=== PATIENT | female | born 1940 | race Caucasian/White ===

== ENCOUNTER 2016-11-11 22:36 | Inpatient (IN) | payer OTHER ==
--- NOTE | 2016-11-11 22:48 | EDPHY ---
H & P Time Seen by Provider: 11/11/16 22:44 HPI/ROS: Chief Complaint: Left hip pain status post fall HPI: 76-year-old alf resident had a mechanical fall from her wheelchair about 6 o'clock this evening. Patient is complaining of left hip pain and was noted she had a deformity. X-rays obtained in the alf which showed a left intertrochanteric hip fracture. Patient has been unable to weight bear since then. Did not hit her head. No loss of consciousness. Has otherwise been in her normal state of health. No cough. No chest pain. No shortness of breath. ROS: 10 point Review of Systems is negative except as noted in the HPI. 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 She has got tenderness over the left hip. She has 2+ DP and PT pulses distally. Capillary refills less than 2 seconds. Sensations intact. Skin: no rash Neuro: CN II-XII intact, Sensation grossly intact, Strength 5/5 in bilateral upper and lower extremities Constitutional: Initial Vital Signs Heart Rate 130 H 11/11/16 22:40 Respiratory Rate 20 11/11/16 22:40 Blood Pressure 124/74 H 11/11/16 22:40 O2 Sat (%) 93 11/11/16 22:40 O2 Delivery Mode Nasal Cannula O2 (L/minute) 3 Allergies/Adverse Reactions: zolpidem tartrate [From Ambien] Allergy (Intermediate, Verified 04/15/09 14:06) DISORIENTATION,HALLUCINATION Home Medications: Medication Instructions Recorded Aspirin 81mg (*) 11/11/16 CALCI-CHEW 11/11/16 Mucinex 600 MG (*) 11/11/16 Thera-M 11/11/16 Tylenol 11/11/16 Vitami D3 11/11/16 Medical Decision Making - Diagnostics EKG Interpretation: ECG time 11:12 p.m., sinus rhythm with a rate of 79, left anterior fascicular block, frequent unifocal PVCs, no acute ST or T-wave changes. Imaging Results: Imaging Impressions Chest X-Ray 11/11/16 22:45 Impression: 1. Mild prominent interstitial markings to the upper lobes. This could be related to underlying interstitial lung disease versus cephalization of pulmonary flow with mild fluid overload. 2. Hyperexpanded lungs compatible with underlying COPD. Hip X-Ray 11/11/16 22:45 Impression: 1. Intertrochanteric left hip fracture with fracture fragment of the left lesser trochanter noted. Imaging: I viewed and interpreted images myself Procedures: Procedure note: Femoral nerve block under ultrasound guidance Time: 11:30 p.m., 11/11/16 Indication: Left femoral intertrochanteric fracture. The patient and her sister were verbally consented to the procedure. Patient was prepped chlorhexidine prep sterile technique was observed including sterile drapes, sterile ultrasound probe cover, sterile gloves. Bedside ultrasound was used by me to identify the femoral nerve, femoral artery and femoral vein in the left hand side. With these are identified an 18 gauge needle was inserted in the vicinity of the femoral nerve. 0.5% bupivacaine was infiltrated around the nerve, frequently drying back to ensure no intravascular placement. The lidocaine was visualized on ultrasound to surround the femoral nerve and surrounding structures. A total of 18 mL of bupivacaine was infiltrated in the area. The needle was removed and a sterile dressing was placed. The patient tolerated the procedure well. There were no complications. The procedure was performed by me. ED Course/Re-evaluation: A left intertrochanteric fracture was noted on x-ray. I have discussed with Dr. Sauceda, orthopedic surgery. He he agreed with plan for placement of a femoral nerve block. See procedure note. I have discussed with Dr. Isaías Guerrero , hospitalist. He will admit to his service for further evaluation. A Deras catheter was placed. Chest x-ray, laboratory evaluation, and ECG were obtained for preoperative purposes. - Data Points Laboratory Results: Laboratory Results 11/11/16 22:48 11/11/16 22:48 11/11/16 11/11/16 22:48 22:48 WBC 14.12 10^3/uL H 10^3/uL (3.80-9.50) RBC 3.89 10^6/uL L 10^6/uL (4.18-5.33) Hgb 11.7 g/dL L g/dL (12.6-16.3) Hct 36.2 % L % (38.0-47.0) MCV 93.1 fL fL (81.5-99.8) MCH 30.1 pg pg (27.9-34.1) MCHC 32.3 g/dL L g/dL (32.4-36.7) RDW 14.0 % % (11.5-15.2) Plt Count 341 10^3/uL 10^3/uL (150-400) MPV 9.9 fL fL (8.7-11.7) Neut % (Auto) 85.4 % H % (39.3-74.2) Lymph % (Auto) 7.0 % L % (15.0-45.0) [place] % (Auto) 6.4 % % (4.5-13.0) Eos % (Auto) 0.4 % L % (0.6-7.6) Baso % (Auto) 0.4 % % (0.3-1.7) Nucleat RBC Rel Count 0.0 % % (0.0-0.2) Absolute Neuts (auto) 12.06 10^3/uL H 10^3/uL (1.70-6.50) Absolute Lymphs (auto) 0.99 10^3/uL L 10^3/uL (1.00-3.00) Absolute Monos (auto) 0.90 10^3/uL H 10^3/uL (0.30-0.80) Absolute Eos (auto) 0.05 10^3/uL 10^3/uL (0.03-0.40) Absolute Basos (auto) 0.06 10^3/uL 10^3/uL (0.02-0.10) Absolute Nucleated RBC 0.00 10^3/uL 10^3/uL (0-0.01) Immature Gran % 0.4 % % (0.0-1.1) Immature Gran # 0.06 10^3/uL 10^3/uL (0.00-0.10) Sodium 139 mEq/L mEq/L (134-144) Potassium 4.6 mEq/L mEq/L (3.5-5.2) Chloride 102 mEq/L mEq/L (97-110) Carbon Dioxide 27 mEq/l mEq/l (22-31) Anion Gap 10 mEq/L mEq/L (8-16) BUN 21 mg/dL mg/dL (7-23) Creatinine 0.9 mg/dL mg/dL (0.6-1.0) Estimated GFR > 60 Glucose 118 mg/dL H mg/dL (70-100) Calcium 9.4 mg/dL mg/dL (8.5-10.4) Departure - Departure Disposition: [facility] Inpatient Acute Clinical Impression: Closed left hip fracture Condition: Fair Referrals: Patient,NotPresent [Unknown] - As per Instructions
[2016-11-11 22:57] LABS: % IMMATURE GRANULYOCYTES 0.4 % (0.0-1.1); ABSOLUTE IMMATURE GRANULOCYTES 0.06 10^3/uL (0.00-0.10); ADD DIFF? NO; ADD MORPH? NO; ADD SCAN? NO; ATYPICAL LYMPHOCYTE FLAG 0 (0-99); FRAGMENT RBC FLAG 0 (0-99); HEMATOCRIT 36.2 % (38.0-47.0); HEMOGLOBIN 11.7 g/dL (12.6-16.3); LEFT SHIFT FLG 0 (0-99); LIPEMIA HEMOLYSIS FLAG 80 (0-99); MEAN CELL HEMOGLOBIN 30.1 pg (27.9-34.1); MEAN CELL HEMOGLOBIN CONCENTR. 32.3 g/dL (32.4-36.7); MEAN CELL VOLUME 93.1 fL (81.5-99.8); MEAN PLATELET VOLUME 9.9 fL (8.7-11.7); PLATELET CLUMPS FLAG 0 (0-99); PLATELET COUNT 341 10^3/uL (150-400); RED BLOOD CELL COUNT 3.89 10^6/uL (4.18-5.33)
[2016-11-11 23:07] LABS: ANION GAP 10 mEq/L (8-16); CALCIUM 9.4 mg/dL (8.5-10.4); CARBON DIOXIDE 27 mEq/l (22-31); CHLORIDE 102 mEq/L (97-110); CREATININE 0.9 mg/dL (0.6-1.0); GLOMERULAR FILTRATION RATE > 60; GLUCOSE 118 mg/dL (70-100); POTASSIUM 4.6 mEq/L (3.5-5.2); SODIUM 139 mEq/L (134-144)
--- NOTE | 2016-11-11 23:14 | CPEKG ---
Heart Rate: 79 RR Interval: 759 P-R Interval: 123 QRSD Interval: 82 QT Interval: 404 QTC Interval: 464 P Newman: 0 QRS Newman: -50 T Wave Newman: 69 EKG Severity - ABNORMAL ECG - EKG Impression: SINUS RHYTHM EKG Impression: VENTRICULAR TRIGEMINY EKG Impression: LEFT ANTERIOR FASCICULAR BLOCK Electronically Signed By: Denzel Adamson 12-Nov-2016 02:28:12
[2016-11-12] MEDS ORDERED: NS 500 ML IV ONE (00:01)
[2016-11-12 00:29] LABS: COLOR YELLOW; LEUKOCYTE ESTERASE,URINE 3+ (NEGATIVE); NITRITE,URINE NEGATIVE (NEGATIVE)
[2016-11-12 00:52] LABS: BACTERIA 4+ /hpf (NONE SEEN); MUCUS TRACE /lpf (NONE-1+); WBC,URINE 25-50 /hpf (0-3)
[2016-11-12] MEDS ORDERED: ONDANSETRON 4 MG/2 ML VIAL IVP PRN (01:58)
[2016-11-12] MEDS ORDERED: ONDANSETRON DISINTEGRATING 4 MG TAB PO PRN (01:58)
--- NOTE | 2016-11-12 02:24 | GHP ---
[f rep st] HISTORY AND PHYSICAL DATE OF ADMISSION: 11/11/2016 CHIEF COMPLAINT: Fall with hip fracture. HISTORY OF PRESENT ILLNESS: This is a 76-year-old female with a history of dementia and COPD living at a [place] [facility]. She apparently fell from her wheelchair and complained of left hip pain. X-rays confirmed a fracture. She is confused and not able to participate in the history. REVIEW OF SYSTEMS: Ten point review of systems unable to be obtained. PAST MEDICAL HISTORY: 1. Dementia. 2. COPD on 2 L of oxygen chronically. 3. Osteoporosis. MEDICATIONS: Reviewed. SOCIAL HISTORY: Previous smoker. FAMILY HISTORY: Both parents are . PHYSICAL EXAM: VITAL SIGNS: Afebrile. Blood pressure is 111/62, heart rate 66, oxygen saturation 96% on 2 L. GENERAL: Patient is thin and in no apparent distress. HEENT: Nonicteric sclerae. Ex traocular movements intact. Moist mucous membranes. NECK: Supple. No thyromegaly. LUNGS: Good effort. Decreased breath sounds bilaterally. No wheezing. CARDIOVASCULAR: Regular rate and rhyth m. No murmurs, rubs, or gallops. ABDOMEN: Positive bowel sounds. Soft, nontender, nondistended. No hepatosplenomegaly. EXTREMITIES: No clubbing, cyanosis, or edema. SKIN: Without rash. Warm, dry, intact. Neuro: Confused. Moves the upper extremities normally. LABORATORY DATA: White blood cell count elevated at 14, hemoglobin 11, platelets are normal. Chemi stries normal. UA does suggest urinary tract infection. EKG personally reviewed and interpreted shows trigeminy, left anterior fascicular block. Chest x-ray personally reviewed and interpreted shows possible interstitial lung disease and COPD. ASSESSMENT: A 76-year-old female with left hip fracture. PLAN: 1. Left hip fracture. Orthopedic surgery has been called. 2. Probable urinary tract infection. Patient does have an elevated white blood cell count and will be going to surgery and, thus, we will treat this with ceftriaxone. 3. Dementia. 4. Patient is a DNR. /[id number]/MODL
[2016-11-12] MEDS: D5W 1/2 NS W/ 20 KCl/L 1,000 ML IV SCH (02:35)
--- NOTE | 2016-11-12 15:14 | HOSPPROG ---
Hospitalist Progress Note Assessment/Plan: 76 y/o female new to my care 11/12 with #Left hip fracture #Dementia (end stage) #COPD/chronic resp failure #suspected uti dnr status Plan -I discussed the case with Dr. Carpio who will schedule pt for OR 11/13 -the patient is not a great surgical candidate given her advanced dementia and baseline mobility (WC bound) -will discuss palliative care with pts POA Subjective: confused. denies pain. unreliable historian Objective: Vital Signs Temp Pulse Resp BP Pulse Ox 37.2 C 90 15 130/72 H 90 L 11/12/16 12:15 11/12/16 12:15 11/12/16 12:15 11/12/16 12:15 11/12/16 12:15 11/11/16 11/12/16 11/13/16 05:59 05:59 05:59 Intake Total 1400 Output Total 100 Balance 1300 - Physical Exam Constitutional: chronically ill appearing Cardiovascular: regular rate and rhythym, no murmur, rub, or gallop Respiratory: no respiratory distress, no rales or rhonchi, clear to auscultation Gastrointestinal: normoactive bowel sounds, soft, non-tender abdomen, no palpable masses Skin: no rashes or abrasions, no fluctuance, no induration Neurologic: CN II-XII Intact, other (AAOx0), No facial droop ICD10 Worksheet Patient Problems: Problems Problem Status Onset Closed left hip fracture Acute
[2016-11-12] MEDS: ACETAMINOPHEN 325 MG TAB PO PRN (19:54)
--- NOTE | 2016-11-12 19:57 | PDGENHP ---
History and Physical History and Physical: 76 F from [facility]. Dementia and mostly in a wheelchair for balance and fall risk precautions. Clare is sister. Sofia is niece, General surgeon in [place]. Dr Joan Watkins ask for my consult for surgical intervention. Xrays with unstable intertroch L hip fx. Lesser is off. Hip fracture is appropriate for TFN. However, Jennyfer is a high risk candidate with limited ambulation Spoke with Clare for one hour over the phone Spoke/communicated films and surgical plan with dwayne Black. One hour. The family will contact the care team as to their wishes for Jennyfer. For now , she is on the surgical schedule Wednesday morning for a TFN. NPO after midnight Pain control Appreciate hospitalist involvement
--- NOTE | 2016-11-12 22:36 | SOAPPROG ---
DAPHNE Progress Note Assessment/Plan: Assessment: Plan: 11/12/16 22:32 Patient with inter-sub trochanteric facture of Left femur. Dementia with some mild co-morbidities. Not really mobile on a daily basis, wheelchair bound. Was set for nailing tomorrow, still waiting for final confirmation from family ( Dr Hollingsworth talked to them today). She is stable, NV intact, LLL is shortened and ER in its position as expected. Dr Sauceda Objective: Vital Signs Temp Pulse Resp BP Pulse Ox 36.4 C 106 H 15 104/96 H 94 11/12/16 20:00 11/12/16 20:00 11/12/16 20:00 11/12/16 20:00 11/12/16 20:00 11/11/16 11/12/16 11/13/16 05:59 05:59 05:59 Intake Total 1400 225 Output Total 100 Balance 1300 225 ICD10 Worksheet Patient Problems: Problems Problem Status Onset Closed left hip fracture Acute
[2016-11-13] MEDS: ACETAMINOPHEN 325 MG TAB PO PRN ×2 (01:33→05:58)
[2016-11-13] MEDS: D5W 1/2 NS W/ 20 KCl/L 1,000 ML IV SCH (04:09)
[2016-11-13] MEDS: ENOXAPARIN 40 MG/0.4 ML SYR SC SCH (06:59)
[2016-11-13] MEDS: ASPIRIN 81 MG CHEWABLE TAB PO SCH (06:59)
--- NOTE | 2016-11-13 12:34 | HOSPPROG ---
Hospitalist Progress Note Assessment/Plan: 76 y/o female new to my care 11/12 with #Left hip fracture #Dementia (end stage) #COPD/chronic resp failure #suspected uti dnr status Plan -I discussed the case with Dr. Carpio who will schedule pt for OR 11/13 -the patient is not a great surgical candidate given her advanced dementia and baseline mobility (WC bound) -I spoke with pts family yesterday (Clare) who is still debating surgery Subjective: pt is confused. denies pain. unreliable historian Objective: Vital Signs Temp Pulse Resp BP Pulse Ox 37.4 C 97 20 115/66 84 L 11/13/16 12:00 11/13/16 12:00 11/13/16 12:00 11/13/16 12:00 11/13/16 12:00 11/12/16 11/13/16 11/14/16 05:59 05:59 05:59 Intake Total 1400 1268 Output Total 100 Balance 1300 1268 - Physical Exam Constitutional: chronically ill appearing Cardiovascular: regular rate and rhythym, no murmur, rub, or gallop Respiratory: no respiratory distress, no rales or rhonchi, clear to auscultation Gastrointestinal: normoactive bowel sounds, soft, non-tender abdomen, no palpable masses, No guarding, No rebound ICD10 Worksheet Patient Problems: Problems Problem Status Onset Closed left hip fracture Acute
[2016-11-13] MEDS ORDERED: ROPIVACAINE HCL 20 MG/10 ML INJ EP ONE ×2 (13:10→16:41)
[2016-11-13] MEDS ORDERED: LR 1,000 ML IV ONE (15:13)
--- NOTE | 2016-11-13 15:37 | PDANEPAE ---
ANE History of Present Illness for L TFN ANE Past Medical History - Pulmonary History Hx COPD: Yes Hx Oxygen in Use at Home: Yes Hx Sleep Apnea: No Sleep Apnea Screening Result - Last Documented: Negative - Neurologic History Hx Dementia: Yes - Endocrine History Hx Diabetes: No ANE Review of Systems - Exercise capacity Exercise capacity: <4 METS, limited by disability ANE Patient History - Allergies Allergies/Adverse Reactions: zolpidem tartrate [From Ambien] Allergy (Intermediate, Verified 04/15/09 14:06) DISORIENTATION,HALLUCINATION - Home Medications Home Medications: Acetaminophen [Tylenol 325mg (*)] 650 mg PO Q4HRS PRN 11/11/16 [Last Taken 11/11 19:00] Aspirin [Aspirin 81mg (*)] 81 mg PO DAILY 11/11/16 [Last Taken 11/11/16] Calcium Carbonate [Oyster Shell Calcium 500 mg (*)] 1,000 mg PO DAILY 11/11/16 [ Last Taken 11/11/16] Cholecalciferol Vit D3 [Vitamin D3 2000 units tab (OTC)] 2,000 units PO DAILY [Last Taken 11/11/16] Multivitamins W-Minerals [Thera M Plus Tablet (*)] 1 each PO WE 11/11/16 [Last Taken 11/11/16] guaiFENesin [Mucinex 600 MG (*)] 600 mg PO BID@11/11/16 [Last Taken 17:00] Alendronate Sodium [Fosamax 70 MG (*)] 70 mg PO WE@11/12/16 [Last Taken 11/11] - NPO status NPO Status: no food or drink >8 hours NPO Since - Liquids (Date): 11/13/16 NPO Since - Liquids (Time): 00:00 NPO Since - Solids (Date): 11/13/16 NPO Since - Solids (Time): 00:00 - Anes Hx Anes Hx: no prior problems Hx Anesthesia Complications (with details): problems with ether - Smoking Hx Smoking Status: Former smoker - Alcohol Use Alcohol Use: None - Family Anes Hx Family Anes Hx: none ANE Labs/Vital Signs - Labs Result Diagrams: 11/11/16 22:48 11/11/16 22:48 - Vital Signs Blood Pressure: 115/66 Heart Rate: 97 Respiratory Rate: 20 O2 Sat (%): 84 Height: 162.56 cm Weight: 43.091 kg ANE Physical Exam - Airway Neck exam: FROM Mallampati Score: Class 1 Mouth exam: poor dentition - Pulmonary Pulmonary: no respiratory distress - Cardiovascular Cardiovascular: regular rate and rhythym - ASA Status ASA Status: III ANE Anesthesia Plan Anesthesia Plan: GA w LMA
[2016-11-13] MEDS ORDERED: fentaNYL 100 MCG/2 ML INJ ONE ×2 (15:51→17:20)
[2016-11-13] MEDS ORDERED: PROPOFOL 200 MG/20 ML VIAL ONE (15:51)
[2016-11-13] MEDS ORDERED: DEXAMETHASONE 4 MG/ML VIAL ONE (15:51)
[2016-11-13] MEDS ORDERED: ONDANSETRON 4 MG/2 ML VIAL ONE (15:51)
[2016-11-13] MEDS ORDERED: LIDOCAINE 2% 100 MG/5 ML SYR ONE (15:51)
[2016-11-13] MEDS ORDERED: epHEDrine SULFATE 10 MG/ML SYR ONE (16:32)
[2016-11-13] MEDS ORDERED: LABETALOL HCL 50 MG/10 ML SYR IVP PRN (16:55)
[2016-11-13] MEDS ORDERED: PROMETHAZINE HCL 25 MG/ML INJ IVP PRN (16:55)
[2016-11-13] MEDS ORDERED: HYDROCODONE/APAP 5/325 TAB PO PRN (16:55)
[2016-11-13] MEDS ORDERED: MEPERIDINE 25 MG/ML SYR IVP PRN (16:55)
[2016-11-13] MEDS ORDERED: NALOXONE HCL 0.4 MG/ML INJ IVP PRN (16:55)
[2016-11-13] MEDS ORDERED: DEXAMETHASONE 4 MG/ML VIAL IVP PRN (16:55)
[2016-11-13] MEDS ORDERED: ACETAMINOPHEN 500 MG TAB PO PRN (16:55)
[2016-11-13] MEDS ORDERED: OXYCODONE/APAP 5/325 TAB PO PRN (16:55)
[2016-11-13] MEDS ORDERED: fentaNYL 100 MCG/2 ML INJ IVP PRN (16:55)
[2016-11-13] MEDS ORDERED: ONDANSETRON 4 MG/2 ML VIAL IVP PRN (16:55)
[2016-11-13] MEDS ORDERED: HYDROmorphONE/DILAUDID 1 MG/ML SYR IVP PRN (16:55)
--- NOTE | 2016-11-13 16:58 | POSTANESTH ---
Post Anesthetic Evaluation Cardiovascular Status: Similar to Pre-Op Cond Respiratory Status: Similar to Pre-op Cond. Level of Consciousness/Mental Status: Can Participate in Eval, Moderately Sleepy Pain Control: Adequate, Prn Tx Ordered Nausea/Vomiting Control: Adequate, Prn Tx Ordered Complications Possibly Related to Anesthesia: None Noted
--- NOTE | 2016-11-13 19:06 | GOP ---
[f rep st] OPERATIVE REPORT DATE OF OPERATION: SURGEON: Kalin Carpio MD PREOPERATIVE DIAGNOSIS: Left hip, unstable intertrochanteric fracture. POSTOPERATIVE DIAGNOSIS: Left hip, unstable intertrochanteric fracture. PROCEDURE PERFORMED: 1. Trochanteric femoral nail, left hip. 2. Intraoperative fluoroscopy interpreted by surgeon. FINDINGS: ESTIMATED BLOOD LOSS: Minimal. INDICATIONS: A 76-year-old female, history of dementia, COPD, deteriorating dementia, was at [facility] and reportedly had a mechanical fall onto her left hip. Triaged to the emergency room. The on -call orthopedic ER provider consulted me for a hip fracture surgical management. After involved in the conversations with the family and proxy and power of sole cutter, the family elec shaniqua to proceed with surgical intervention for the eventuality need and considerations for standing a nd walking for her, even though she has been in a wheelchair for most of the last 2 months. The patient identified in the preoperative holding area. Sister ] was available at bedside for ques tions and answers. Consent was given. Sister was the power of sole cutter. She agreed to the adheren t risks of left hip fracture, hip fracture fixation. DESCRIPTION OF PROCEDURE: The patient was brought into the operating room. General anesthesia on [facility], transferred over to the fracture table. Well-padded bolster was used. The well leg was placed in 45 degrees of abduction, 90 degrees of knee flexion. The injured leg was placed with the kneecap pointing straight up with 10 degrees of hip flexion, neutral adduction. The patient was jennifer rly skinny and had minimal subcutaneous tissue. The left hip was prepped and draped in the usual st erile fashion. Surgical time-out was performed. [place]an draping. We made an incision just superior in line with the greater trochanter. Sharp dissection through the IT band. The fracture was easily identified. We did reduce the fracture and confirm it under fluoroscopic view prior to draping. W e chose the tip of the greater trochanter. We did enter the fracture. She had osteoporotic bone. We over-reamed with a 13 mm starting reamer and then placed a ball-tipped guidewire down the femur. Confirmed its intramedullary position, and measured and chose a 340 mm nail. We started with an en d reamer and then reamed by 1 up to about 11.5. We had beautiful chatter at the isthmus and then we placed the nail and removed the ball-tipped guidewire. We had a nice fit and fill with the nail en suring that we had good isthmus fit. We just chose a cephalomedullary device. It measured a 95. C onfirmed it under AP, lateral, and half-lateral view to have a tip apex distance less than 20 mm. All instruments were removed. We statically locked the nail. We took final fluoroscopic views in a ll planes. The wound was copiously washed out with 500 cc of warm normal saline. IT band was close d with 0 PDS. Deep subcutaneous tissue was closed with 2-0 PDS. Superficial subcutaneous tissue cl osed with 3-0 Monocryl and michaela used. 20 cc of 0.2% ropivacaine was injected throughout the subc utaneous tissue, and a sterile waterproof dressing was applied with Xeroform, 4x4s, and Tegaderm. IMPLANTS USED: Synthes TFN 340 mm nail with a 95 mm cephalomedullary screw. No distal interlock sc rew was used. COMPLICATIONS: None. TOTAL SURGICAL TIME: 60 minutes. DISPOSITION: Extubated awake to the PACU in stable condition. /[id number]/MODL
[2016-11-14] MEDS: ASPIRIN 81 MG CHEWABLE TAB PO SCH (08:45)
[2016-11-14] MEDS: ENOXAPARIN 40 MG/0.4 ML SYR SC SCH (08:45)
--- NOTE | 2016-11-14 16:42 | HOSPPROG ---
Hospitalist Progress Note Assessment/Plan: 76-year-old female sustained a left hip fracture due to a fall. She is status post left hip pinning on 7 . Postoperatively she has done well. Patient new to me today. - Left hip pinning, pod 1. Patient is doing well. She stood at the side of the bed sat in a chair and is without complications. - Chronic respiratory failure, COPD: She has chronic oxygen needs of 2-4 and is currently stable without respiratory distress - UTI possible urinalysis was negative and cultures are pending although she has been afebrile. There is no signs of infection. This is resolved - DNR status plan: Continue PT OT and continue her oxygen needs. Patient is currently doing well. Subjective: No complaints. She says her pain is well managed. No chest pain shortness of breath nausea or vomiting. Objective: Vital Signs Temp Pulse Resp BP Pulse Ox 36.3 C 86 18 111/67 90 L 11/14/16 15:56 11/14/16 15:56 11/14/16 15:56 11/14/16 15:56 11/14/16 15:56 11/13/16 11/14/16 11/15/16 05:59 05:59 05:59 Intake Total 1268 3160 Output Total 250 Balance 1268 2910 - Time Spent With Patient Time Spent with Patient: greater than 35 minutes Time Spent with Patient: Greater than 35 minutes spent on this patients care, greater than 50% of time spent counseling, educating, and coordinating care regarding the above mentioned plan. - Pending Discharge Pending Discharge Within 24 Hours: No Pending Discharge Within 48 Hours: Yes Pending Discharge Date: 11/16/16 Pending Discharge Time: 11:00 - Physical Exam Constitutional: no apparent distress, other ( Patient is chronically tachypneic in Breathing with pursed lipped breathing.) Eyes: PERRL Ears, Nose, Mouth, Throat: moist mucous membranes, hard of hearing Cardiovascular: regular rate and rhythym, no murmur, rub, or gallop, systolic murmur Respiratory: other ( chronic tachypnea is noted. Lungs are clear without rales rhonchi) Gastrointestinal: normoactive bowel sounds, soft, non-tender abdomen Genitourinary: no bladder fullness Skin: warm, other ( pulses 2+ femorals DP PT good capillary refill) Musculoskeletal: generalized weakness, other ( left hip is tender with a slight degree of ecchymosis and swelling.) Neurologic: AAOx3, CN II-XII Intact ICD10 Worksheet Patient Problems: Problems Problem Status Onset Closed left hip fracture Acute
[2016-11-14 16:52] LABS: % IMMATURE GRANULYOCYTES 0.4 % (0.0-1.1); ABSOLUTE IMMATURE GRANULOCYTES 0.04 10^3/uL (0.00-0.10); ADD DIFF? NO; ADD MORPH? NO; ADD SCAN? NO; ATYPICAL LYMPHOCYTE FLAG 0 (0-99); FRAGMENT RBC FLAG 0 (0-99); HEMATOCRIT 24.8 % (38.0-47.0); HEMOGLOBIN 8.2 g/dL (12.6-16.3); LEFT SHIFT FLG 0 (0-99); LIPEMIA HEMOLYSIS FLAG 80 (0-99); MEAN CELL HEMOGLOBIN 30.4 pg (27.9-34.1); MEAN CELL HEMOGLOBIN CONCENTR. 33.1 g/dL (32.4-36.7); MEAN CELL VOLUME 91.9 fL (81.5-99.8); MEAN PLATELET VOLUME 9.9 fL (8.7-11.7); PLATELET CLUMPS FLAG 20 (0-99); PLATELET COUNT 252 10^3/uL (150-400); RED CELL DISTRIBUTION WIDTH 13.8 % (11.5-15.2)
[2016-11-14 17:04] LABS: ALANINE AMINOTRANSFERASE 25 IU/L (9-52); ALBUMIN 2.9 g/dL (3.5-5.0); ALKALINE PHOSPHATASE 49 IU/L (38-126); ANION GAP 9 mEq/L (8-16); ASPARTATE AMINOTRANSFERASE 31 IU/L (14-46); BILIRUBIN,TOTAL 0.5 mg/dL (0.1-1.4); CALCIUM 8.4 mg/dL (8.5-10.4); CARBON DIOXIDE 24 mEq/l (22-31); CHLORIDE 101 mEq/L (97-110); CREATININE 0.7 mg/dL (0.6-1.0); GLOMERULAR FILTRATION RATE > 60; GLUCOSE 91 mg/dL (70-100); POTASSIUM 4.2 mEq/L (3.5-5.2); SODIUM 134 mEq/L (134-144); TOTAL PROTEIN 5.1 g/dL (6.3-8.2)
[2016-11-14] MEDS: ACETAMINOPHEN 325 MG TAB PO PRN (18:28)
[2016-11-15] MEDS: ENOXAPARIN 40 MG/0.4 ML SYR SC SCH (09:01)
[2016-11-15] MEDS: ASPIRIN 81 MG CHEWABLE TAB PO SCH (09:01)
[2016-11-15] MEDS ORDERED: POLYETHYLENE GLYCOL 3350 17 GM PKT PO PRN (11:46)
[2016-11-15] MEDS ORDERED: MAGNESIUM HYDROXIDE 30 ML UDCUP PO PRN (11:46)
[2016-11-15] MEDS ORDERED: LACTULOSE 20 GM/30 ML UDCUP PO PRN (11:46)
[2016-11-15] MEDS ORDERED: BISACODYL 10 MG SUPP PR PRN (11:46)
--- NOTE | 2016-11-15 14:56 | HOSPPROG ---
Hospitalist Progress Note Assessment/Plan: 76-year-old female sustained a left hip fracture due to a fall. She is status post left hip pinning on 7 . Postoperatively she has done well. Doing well, likited pain, appears to be back to her baseline function. She is wheelchair bound, dementia, oriented x0, alert. - Left hip pinning, pod 1. Patient is doing well. She stood at the side of the bed sat in a chair and is without complications. POD #2 - Chronic respiratory failure, COPD: She has chronic oxygen needs of 2-4 and is currently stable without respiratory distress - UTI possible urinalysis was negative and cultures are pending although she has been afebrile. There is no signs of infection. This is resolved - DNR status plan: Continue PT OT and continue her oxygen needs. Patient is currently doing well. dispo: [facility] 11/16 Subjective: no complaints. pain in good control Objective: Vital Signs Temp Pulse Resp BP Pulse Ox 36.6 C 84 16 92/47 L 93 11/15/16 07:20 11/15/16 08:00 11/15/16 08:00 11/15/16 08:00 11/15/16 13:17 Laboratory Results 11/14/16 16:30 11/14/16 16:30 11/14/16 11/15/16 11/16/16 05:59 05:59 05:59 Intake Total 3160 500 Output Total 250 Balance 2910 500 - Time Spent With Patient Time Spent with Patient: greater than 25 minutes Time Spent with Patient: Greater than 25 minutes spent on this patients care, greater than 50% of time spent counseling, educating, and coordinating care regarding the above mentioned plan. - Pending Discharge Pending Discharge Within 24 Hours: Yes Pending Discharge Date: 11/16/16 Pending Discharge Time: 11:00 - Physical Exam Constitutional: no apparent distress, other (elderly and thin) Eyes: PERRL Ears, Nose, Mouth, Throat: moist mucous membranes, hearing normal Cardiovascular: regular rate and rhythym, no murmur, rub, or gallop Respiratory: no respiratory distress, no rales or rhonchi, reduced air movement Gastrointestinal: normoactive bowel sounds, soft, non-tender abdomen, no palpable masses Skin: warm Musculoskeletal: generalized weakness Neurologic: other (oriented x0, alert, interactive; demented) Psychiatric: poor insight, poor judgement, poor memory ICD10 Worksheet Patient Problems: Problems Problem Status Onset Closed left hip fracture Acute
[2016-11-15] MEDS: SENNOSIDES/DOCUSATE SODIUM TAB PO SCH (22:03)
[2016-11-15] MEDS: ACETAMINOPHEN 325 MG TAB PO PRN (22:03)
[2016-11-16 05:01] LABS: % IMMATURE GRANULYOCYTES 0.2 % (0.0-1.1); ABSOLUTE IMMATURE GRANULOCYTES 0.02 10^3/uL (0.00-0.10); ADD DIFF? NO; ADD MORPH? NO; ADD SCAN? NO; ATYPICAL LYMPHOCYTE FLAG 0 (0-99); FRAGMENT RBC FLAG 0 (0-99); HEMATOCRIT 23.6 % (38.0-47.0); HEMOGLOBIN 7.9 g/dL (12.6-16.3); LEFT SHIFT FLG 0 (0-99); LIPEMIA HEMOLYSIS FLAG 80 (0-99); MEAN CELL HEMOGLOBIN 30.9 pg (27.9-34.1); MEAN CELL HEMOGLOBIN CONCENTR. 33.5 g/dL (32.4-36.7); MEAN CELL VOLUME 92.2 fL (81.5-99.8); PLATELET CLUMPS FLAG 0 (0-99); PLATELET COUNT 298 10^3/uL (150-400); RED BLOOD CELL COUNT 2.56 10^6/uL (4.18-5.33); RED CELL DISTRIBUTION WIDTH 13.6 % (11.5-15.2)
[2016-11-16 05:12] LABS: ANION GAP 7 mEq/L (8-16); CALCIUM 8.5 mg/dL (8.5-10.4); CARBON DIOXIDE 28 mEq/l (22-31); CHLORIDE 106 mEq/L (97-110); CREATININE 0.6 mg/dL (0.6-1.0); GLOMERULAR FILTRATION RATE > 60; GLUCOSE 81 mg/dL (70-100); POTASSIUM 3.8 mEq/L (3.5-5.2); SODIUM 141 mEq/L (134-144)
[2016-11-16] MEDS: ENOXAPARIN 40 MG/0.4 ML SYR SC SCH (08:33)
[2016-11-16] MEDS: SENNOSIDES/DOCUSATE SODIUM TAB PO SCH (08:33)
[2016-11-16] MEDS: ASPIRIN 81 MG CHEWABLE TAB PO SCH (08:33)
[2016-11-16] MEDS: ACETAMINOPHEN 325 MG TAB PO PRN ×2 (08:37→13:42)
--- NOTE | 2016-11-16 15:16 | PDIAF ---
- Diagnosis Code Status: Do Not Resuscitate - Medication Management Discharge Medications: Medications to Continue on Transfer Acetaminophen [Tylenol 325mg (*)] 650 mg PO Q4HRS PRN 11/11/16 [Last Taken 11/11 19:00] Aspirin [Aspirin 81mg (*)] 81 mg PO DAILY 11/11/16 [Last Taken 11/11/16] Calcium Carbonate [Oyster Shell Calcium 500 mg (*)] 1,000 mg PO DAILY 11/11/16 [ Last Taken 11/11/16] Cholecalciferol Vit D3 [Vitamin D3 2000 units tab (OTC)] 2,000 units PO DAILY [Last Taken 11/11/16] Multivitamins W-Minerals [Thera M Plus Tablet (*)] 1 each PO WE 11/11/16 [Last Taken 11/11/16] guaiFENesin [Mucinex 600 MG (*)] 600 mg PO BID@11/11/16 [Last Taken 17:00] Alendronate Sodium [Fosamax 70 MG (*)] 70 mg PO WE@11/12/16 [Last Taken 11/11] Enoxaparin [Lovenox 40 MG (*)] 40 mg SC BID 14 Days 11/16/16 [Last Taken Unknown ] Hydrocodone/APAP 5/325 [[place] 5/325 (*)] 1 each PO Q8 #15 tab 11/16/16 [Last Taken Unknown] Discharge Medications: Refer to the Discharge Home Medication list for PRN reason. - Orders Services needed: Registered Nurse, Certified [employer], Physical Therapy, Occupational Therapy Diet Recommendation: no restrictions on diet Diet Texture: Regular Texture Diet - Labs/Radiology CBC Date: 11/26/16 CMP Date: 11/26/16 - Follow Up Care Current Providers and Referrals: Patient,NotPresent [Unknown] - As per Instructions Kalin Carpio MD [Medical Doctor] - follow up in 2 weeks
[2016-11-16 16:26] VITALS: BP 93/58; PULSE 80; RESP 18; TEMP 98.3; O2SAT 88
[2016-11-16] MEDS ORDERED: POLYETHYLENE GLYCOL 3350 17 GM PKT PO PRN ×2 (17:01→17:02)
[2016-11-16] MEDS ORDERED: MAGNESIUM HYDROXIDE 30 ML UDCUP PO PRN (17:02)
[2016-11-16] MEDS ORDERED: LACTULOSE 20 GM/30 ML UDCUP PO PRN (17:02)
[2016-11-16] MEDS ORDERED: BISACODYL 10 MG SUPP PR PRN (17:02)
[2016-11-16] MEDS ORDERED: SENNOSIDES/DOCUSATE SODIUM TAB PO SCH (21:00)
--- NOTE | 2016-11-17 02:50 | GDS ---
[f rep st] DISCHARGE SUMMARY KNOWN ACUTE DIAGNOSES: 1. Left hip intertrochanteric fracture status post pinning. 2. Acute urinary tract infection status post treatment with Rocephin. 3. A do not resuscitate code status. CHRONIC DIAGNOSES: 1. Chronic respiratory failure on 2 L nasal prong oxygen chronically. 2. Dementia. CONSULTATION: Orthopedics. PROCEDURE: On 11/13, there was a trochanteric femoral nailing of the left hip by Dr. Kalin Carpio. BRIEF HOSPITAL COURSE: A 76-year-old female with chronic medical problems of chronic respiratory fa ilure and dementia, fell and sustained a left hip intertrochanteric fracture. She underwent a naili ng on 11/[address] Carpio. Her medical problems were managed in the usual fashion. She tolerated the procedure well. She had some pyuria by microscopic exam though the culture of the urine did not gr ow any active or any organisms. She received 4 days of Rocephin IV, and this was felt to have compl eted her course of treatment. Her Deras catheter will be removed. DISCHARGE MEDICATIONS: These will be the same as her admission medications with only 1 new medicati on as follows; new medications are enoxaparin 40 mg subcu twice daily x14 days, [place] 5/325 mg table t 1 p.o. q.8 hours p.r.n. pain. Her usual medications are vitamin D3 2000 international units daily , Tylenol 650 mg p.o. q.4 hours p.r.n. pain, multivitamins daily, guaifenesin 600 mg p.o. twice deed[place] y, calcium carbonate 1000 mg daily, ASA 81 mg daily, Fosamax 70 mg p.o. on Wednesday. PLAN: The patient is discharged to [facility]. Her followup will be with Dr. Kalin Carpio in 2-3 weeks. Note, that the Lovenox is for DVT prophylaxis for only 2 weeks, and then should be stopped. /[id number]/MODL
[2016-11-18] MEDS ORDERED: MULTIVITAMINS W-MINERALS 1 EACH TAB PO SCH (15:14)
== END 2016-11-16 17:47 | DRG 481 ==
LOC: EDBD → EDUNIT# → INTOOBSV 23:44 → OBSVTOIN 23:44 → F1N 11-12 00:15 → F3N 11-12 15:55
PROVIDERS: ADMIT Internal Medicine; ATTEND Internal Medicine Pulmonary Disease
PROC: 0QS706Z Reposition Left Upper Femur with Intramedullary Internal Fixation Device, Open Approach (ICD-10-PCS; principal; 2016-11-11)
DX: S72.142A Displaced intertrochanteric fracture of left femur, initial encounter for closed fracture (principal); W05.0XXA Fall from non-moving wheelchair, initial encounter; Y92.129 Unspecified place in nursing home as the place of occurrence of the external cause; N39.0 Urinary tract infection, site not specified; F03.90 Unspecified dementia, unspecified severity, without behavioral disturbance, psychotic disturbance, mood disturbance, and anxiety; J44.9 Chronic obstructive pulmonary disease, unspecified; J96.10 Chronic respiratory failure, unspecified whether with hypoxia or hypercapnia; M81.0 Age-related osteoporosis without current pathological fracture; Z99.81 Dependence on supplemental oxygen; Z87.891 Personal history of nicotine dependence; Z66 Do not resuscitate
CPT/HCPCS: 92523-GN; 92526-GN; 97162-GP; 97166-GO; C1713; C1769; G8978-GP-CM; G8979-GP-CL; G8987-GO-CM; G8988-GO-CL; G8996-GN-CK; G8997-GN-CI; G8998-GN-CI; J0690; J0696; J1100; J1650; J2001; J2405; J2704; J2795; J3010